=== PATIENT | male | born 1955 | race Caucasian/White ===

== ENCOUNTER 2017-08-16 22:27 | Inpatient (IN) | payer OTHER ==
[~2017-08-16] VITALS: Ht 177.8 cm; Wt 80.0 kg
[~2017-08-16 22:27] MED LIST: CHLO25 PO; PANT40IN3 PO
[2017-08-16 22:28] VITALS: BP 189/110; PULSE 136; RESP 20; TEMP 97.9; O2SAT 98
[2017-08-16] MEDS ORDERED: SODIUM CHLOR 0.9% 1000 ML INJ 1,000 ML IV SCH (22:48)
--- NOTE | 2017-08-16 22:52 | PD ---
HPI Chief Complaint: Bleeding Time Seen by Provider: 22:48 Travel History International Travel<30 days: No Contact w/Intl Traveler<30days: No Traveled to known affect area: No History of Present Illness HPI 62-year-old male presents to the emergency department for complaint of rectal bleeding and lower abdominal pain after placing 2 water filled condoms and a glass bottle per rectum around noon today. Patient states he used a laxative without symptom relief. Patient states he also used a tablespoon to try to dislodge the foreign body around 1 PM and asked when he started noticing red blood per rectum. Due to ongoing retained foreign body and feeling bloated decided to come to the emergency room for evaluation. Patient states he is very embarrassed to be here. Patient rates his discomfort 6-7/10 intensity. Patient's had no nausea or vomiting. Patient denies any chronic medical conditions although has been admitted in the past for upper GI bleed. Patient admits to occasional alcohol use and did drink alcohol earlier in the morning but denies daily alcohol use states may drink once a week or less often since his partner ; he does not drink alcohol as much as he used to as he used to drink alcohol specifically with her. Patient does admit to daily tobacco use. PFSH Past Medical History Narrative Medical upper gi bleed --cirrhosis, esophageal varices w banding x [address] Covington 02/2016, alcohol use, tobacco use; nursing notes reviewed Diminished Hearing: No Medical other: Yes (UPPER GI BLEED ) ?: Not Past Surgical History Oral Surgery: Yes (ALL TEETH PULLED) Social History Alcohol Use: Yes Tobacco Use: Yes (1 PPD) Substance Use: No Allergies-Medications (Allergen,Severity, Reaction): Coded Allergies: No Known Allergies (Unverified Adverse Reaction, Unknown, 08/16/17) Reported Meds & Prescriptions Reported Meds & Active Scripts Active No Active Prescriptions or Reported Medications Review of Systems Except as stated in HPI: all other systems reviewed are Neg General / Constitutional: No: Fever, Chills HENT: No: Congestion Cardiovascular: No: Chest Pain or Discomfort Respiratory: No: Shortness of Breath Gastrointestinal: Positive: Abdominal Pain (feels bloated), Hematochezia, No: Nausea, Vomiting, Diarrhea, Hematemesis, Loss of Appetite Musculoskeletal: No: Myalgias, Arthralgias Skin: No Rash Neurologic: No: Weakness, Dizziness Psychiatric: Positive: Anxiety Hematologic/Lymphatic: No: Lymph Node Enlargement Physical Exam Narrative GENERAL: Well-developed well-nourished male in no acute respiratory distress. Appears anxious; heart rate 135 sinus tach by compliance monitor SKIN: Warm and dry. HEAD: Normocephalic. EYES: No scleral icterus. No injection or drainage. NECK: Supple, trachea midline. No JVD or lymphadenopathy. CARDIOVASCULAR: Increased Regular rate and rhythm without murmurs, gallops, or rubs. RESPIRATORY: Breath sounds equal bilaterally. No accessory muscle use. GASTROINTESTINAL: Abdomen soft, non-tender, no guarding, no rebound, nondistended. Rectal exam: Scant dried blood at the anal verge normal sphincter tone blood and mucus on exam glove and palpable foreign body at tip of exam finger. MUSCULOSKELETAL: No cyanosis, or edema. BACK: Nontender without obvious deformity. No CVA tenderness. Data Data Last Documented VS Vital Signs Date Time Temp Pulse Resp B/P (MAP) Pulse Ox O2 Delivery O2 Flow Rate FiO2 08/16/17 22:42 136 17 98 Room Air 08/16/17 22:28 97.9 189/110 (136) Orders Orders Basic Metabolic Panel (Bmp) (08/16/17 22:48) Complete Blood Count With Diff (08/16/17 22:48) Prothrombin Time / Inr (Pt) (08/16/17 22:48) Act Partial Throm Time (Ptt) (08/16/17 22:48) Alcohol (Ethanol) (08/16/17 22:48) Abdomen, Kub Only (08/16/17 22:48) Ecg Monitoring (08/16/17 22:48) Iv Access Insert/Monitor (08/16/17 22:48) Oximetry (08/16/17 22:48) Sodium Chlor 0.9% 1000 Ml Inj (Ns 1000 M (08/16/17 22:48) Sodium Chloride 0.9% Flush (Ns Flush) (08/16/17 23:00) Type And Screen (08/16/17 22:48) Blood Product Administration (08/16/17 22:48) Sodium Chlor 0.9% 250 Ml Inj (Ns 250 Ml (08/16/17 23:00) Morphine Inj (Morphine Inj) (08/16/17 23:30) Ondansetron Inj (Zofran Inj) (08/16/17 23:30) Morphine Inj (Morphine Inj) (08/16/17 23:45) Abdomen, Upright Only (08/16/17 ) NPO (08/17/17 00:12) Magnesium (Mg) (08/17/17 00:12) Electrocardiogram (08/17/17 ) Comprehensive Metabolic Panel (08/17/17 00:32) Lorazepam Inj (Ativan Inj) (08/17/17 01:00) Sodium Chlorid 0.9% 500 Ml Inj (Ns 500 M (08/17/17 01:00) Admit To Inpatient (08/17/17 ) Code Status (08/17/17 02:20) Vital Signs (Adult) Q4H (08/17/17 02:20) Activity Oob With Assistance (08/17/17 02:20) Diet Npo (08/17/17 Breakfast) Sodium Chloride 0.9% Flush (Ns Flush) (08/17/17 02:30) Sodium Chloride 0.9% Flush (Ns Flush) (08/17/17 09:00) Acetaminophen (Tylenol) (08/17/17 02:30) Ondansetron Inj (Zofran Inj) (08/17/17 02:30) Basic Metabolic Panel (Bmp) (08/18/17 06:00) Complete Blood Count With Diff (08/18/17 06:00) Chest, Single Ap (08/17/17 02:20) Electrocardiogram (08/17/17 02:20) Scd Bilateral/Knee High LEE.BID (08/17/17 02:20) Naloxone Inj (Narcan Inj) (08/17/17 02:30) Magnesium Hydroxide Liq (Milk Of Magnesi (08/17/17 02:30) Inpatient Certification (08/17/17 ) Lorazepam Inj (Ativan Inj) (08/17/17 02:30) Acetamin-Hydrocod 325-5 Mg (Carter 5-325 (08/17/17 02:30) Hydromorphone Pf Inj (Dilaudid Pf Inj) (08/17/17 02:30) Sodium Chlorid 0.9% 500 Ml Inj (Ns 500 M (08/17/17 02:30) 1/2 Ns + Kcl 20 Meq Inj (08/13 Ns + Kcl 20 (08/17/17 02:30) Electric Motor Tester Assembler / Telemetry LEE.Q8H (08/17/17 02:27) Enalaprilat Inj (Vasotec Inj) (08/17/17 02:30) Consult Colorectal Surgery (08/17/17 ) Admit Order (Ed Use Only) (08/17/17 ) Electric Motor Tester Assembler / Telemetry LEE.Q8H (08/17/17 02:32) Activity Bed Rest (08/17/17 02:32) Notify Dr: Other (08/17/17 02:32) Labs Laboratory Tests Test 08/16/17 23:00 08/17/17 01:20 White Blood Count 14.6 TH/MM3 Red Blood Count 5.25 MIL/MM3 Hemoglobin 17.1 GM/DL Hematocrit 48.1 % Mean Corpuscular Volume 91.5 FL Mean Corpuscular Hemoglobin 32.6 PG Mean Corpuscular Hemoglobin Concent 35.6 % Red Cell Distribution Width 14.0 % Platelet Count 236 TH/MM3 Mean Platelet Volume 7.3 FL Neutrophils (%) (Auto) 78.0 % Lymphocytes (%) (Auto) 12.3 % Monocytes (%) (Auto) 8.9 % Eosinophils (%) (Auto) 0.2 % Basophils (%) (Auto) 0.6 % Neutrophils # (Auto) 11.4 TH/MM3 Lymphocytes # (Auto) 1.8 TH/MM3 Monocytes # (Auto) 1.3 TH/MM3 Eosinophils # (Auto) 0.0 TH/MM3 Basophils # (Auto) 0.1 TH/MM3 CBC Comment AUTO DIFF Differential Comment AUTO DIFF CONFIRMED Platelet Estimate NORMAL Platelet Morphology Comment NORMAL Red Cell Morphology Comment NORMAL Prothrombin Time 10.8 SEC Prothromb Time International Ratio 1.1 RATIO Activated Partial Thromboplast Time 21.3 SEC Blood Urea Nitrogen 10 MG/DL 10 MG/DL Creatinine 1.15 MG/DL 1.18 MG/DL Random Glucose 176 MG/DL 138 MG/DL Calcium Level 9.5 MG/DL 8.8 MG/DL Sodium Level 137 MEQ/L 141 MEQ/L Potassium Level 3.2 MEQ/L 3.3 MEQ/L Chloride Level 99 MEQ/L 104 MEQ/L Carbon Dioxide Level 24.1 MEQ/L 24.5 MEQ/L Anion Gap 14 MEQ/L 13 MEQ/L Estimat Glomerular Filtration Rate 64 ML/MIN 62 ML/MIN Magnesium Level 2.1 MG/DL Ethyl Alcohol Level 6 MG/DL Total Protein 7.7 GM/DL Albumin 4.0 GM/DL Alkaline Phosphatase 71 U/L Aspartate Amino Transf (AST/SGOT) 25 U/L Alanine Aminotransferase (ALT/SGPT) 32 U/L Total Bilirubin 1.3 MG/DL MDM Medical Decision Making Medical Screen Exam Complete: Yes Emergency Medical Condition: Yes Medical Record Reviewed: Yes Interpretation(s) abdomen upright xr: FINDINGS: 2 upright AP views of the abdomen. Rectal foreign body is again seen in the midline pelvis. Small amount of gas is seen in the nondependent portion of the gastric fundus. No free air is identified. Numerous small bowel air fluid levels are identified. Small bowel loops are mildly distended measuring approximately 3 cm in diameter. CONCLUSION: 1. No evidence of free air. 2. Numerous nonspecific small bowel air-fluid levels and mild diffuse small bowel distention. William Aranda MD on August 17, 2017 at 0:28 Board Certified Radiologist. This report was verified electronically. Last Impressions Abdomen X-Ray 08/16/172247 Signed Impressions: Service Date/Time: Wednesday, August 16, 2017 22:53 - CONCLUSION: 12 cm rectal foreign body identified. William Aranda MD CBC & BMP Diagram 08/16/17 23:00 Calcium Level 9.5 Vital Signs Date Time Temp Pulse Resp B/P (MAP) Pulse Ox O2 Delivery O2 Flow Rate FiO2 08/16/17 22:42 136 17 98 Room Air 08/16/17 22:28 97.9 136 20 189/110 (136) 98 Room Air EKG: Sinus tachycardia rate 122 QS inferiorly age-indeterminate no acute ST elevation or injury pattern Differential Diagnosis Retained foreign body, intestinal perforation, sepsis Narrative Course IV access obtained specimens collected and sent for resulting patient administered fluid bolus type and screen obtained and morphine sulfate 3 mg IV along with Zofran 4 mg administered With digital exam of rectum can feel top of the foreign body as reportedly bottle inserted bottom first into the rectum. Blood is on the exam glove consistent with possible mucous membrane trauma after patient inserted spoon into the rectum to try to remove the foreign body/bottle on his own no obvious tear is palpable. No active bleeding at this time blood is on the glove and no blood per rectum. Unable to pass Barragan catheter passed foreign body object to inflate the balloon and try to dislodge foreign body. Call placed to training personnel supervisor colorectal surgeon. At midnight discussed with on-call colorectal surgeon Dr. Baker who recommends patient remain nothing by mouth and will remove the foreign body in the or in the a.m. Patient informed of plan for observation admission overnight with plan for colorectal surgeon to remove retained foreign body from the rectum in the a.m.; patient states that this makes him very anxious that he is very concerned about his dog is very afraid that he will have to stay in the hospital longer than overnight he is very upset about his dog being home alone and states that this is making him more more anxious and patient's heart rate does increase with his complaint of anxiety. Patient requests antianxiety medication. @ 4:05 AM patient passed loose non-grossly bloody BM. Physician Communication Physician Communication @ 23:10 call placed to colorectal training personnel supervisor Dr Shaikh -- discussed with Dr Baker --keep npo will remove in the OR in AM; discussed with Dr Tavarez re: obs to medicine for prior h/o alc w/d and variceal upper gi bleed Diagnosis Primary Impression: Foreign body in anus and rectum, initial encounter Admitting Information Admitting Physician Requests: Observation Scripts No Active Prescriptions or Reported Meds Tammy Giordano MD Aug 16, 2017 22:52
[2017-08-16] MEDS ORDERED: SODIUM CHLORIDE 0.9% FLUSH 10 ML FLUSH IVF PRN (23:00)
[2017-08-16] MEDS ORDERED: SODIUM CHLOR 0.9% 250 ML INJ 250 ML IV ONE (23:00)
[2017-08-16 23:12] LABS: AUTOMATED NEUTROPHIL # 11.4 TH/MM3 (1.8-7.7); BASOPHIL # 0.1 TH/MM3 (0-0.2); BASOPHIL % 0.6 % (0.0-2.0); EOSINOPHIL % 0.2 % (0.0-4.0); HEMATOCRIT 48.1 % (39.0-51.0); HEMOGLOBIN 17.1 GM/DL (13.0-17.0); LYMPH % 12.3 % (9.0-44.0); LYMPHOCYTE # 1.8 TH/MM3 (1.0-4.8); MEAN CELL VOLUME 91.5 FL (80.0-100.0); MEAN CORPUSCULAR HEMOGLOBIN 32.6 PG (27.0-34.0); MEAN CORPUSCULAR HGB CONC 35.6 % (32.0-36.0); MEAN PLATELET VOLUME 7.3 FL (7.0-11.0); MONO % 8.9 % (0.0-8.0); MONOCYTE # 1.3 TH/MM3 (0-0.9); PLATELET COUNT 236 TH/MM3 (150-450); RED BLOOD COUNT 5.25 MIL/MM3 (4.50-5.90); WHITE BLOOD COUNT 14.6 TH/MM3 (4.0-11.0)
--- NOTE | 2017-08-16 23:14 | RADRPT ---
EXAM DATE/TIME: 08/16/2017 22:53 [facility] COMPARISON: No previous studies available for comparison. INDICATIONS : Blood loss and blood in stool. Evaluate for foreign body. MEDICAL HISTORY : None. SURGICAL HISTORY : None. ENCOUNTER: Initial ACUITY: 1 day PAIN SCORE: 10/10 LOCATION: Abdomen FINDINGS: 2 AP supine views of the abdomen and pelvis. There is a 12 cm x 4 cm radiopaque foreign body in the m idline pelvis indicating a rectal foreign body. It has an ovoid component superiorly and a cylindrica l component inferiorly along with a 1.1 x 0.4 cm metallic coil at the junction of the components. Bowel gas pattern is within normal limits. Small osteophytes of the hips. Moderate degenerative findi ngs the lumbar spine. CONCLUSION: 12 cm rectal foreign body identified. William Aranda MD on August 16, 2017 at 23:06 Board Certified Radiologist. This report was verified electronically.
[2017-08-16] MEDS ORDERED: MORPHINE SULFATE 4 MG/ML INJ IV PUSH ONE (23:30)
[2017-08-16] MEDS ORDERED: ONDANSETRON HCL 4 MG/2 ML VIAL IV PUSH ONE (23:30)
[2017-08-16 23:31] LABS: BICARBONATE 24.1 MEQ/L (21.0-32.0); CALCIUM 9.5 MG/DL (8.5-10.1); CREATININE 1.15 MG/DL (0.60-1.30); INTERNATIONAL NORMALIZED RATIO 1.1 RATIO; PROTHROMBIN TIME - PATIENT 10.8 SEC (9.8-11.6)
[2017-08-16] MEDS ORDERED: MORPHINE SULFATE 2 MG/ML INJ IV PUSH ONE (23:45)
--- NOTE | 2017-08-17 00:34 | RADRPT ---
EXAM DATE/TIME: 08/17/2017 00:19 [facility] COMPARISON: ABDOMEN KUB ONLY, August 16, 2017, 22:53. INDICATIONS : Evaluate for free air- Abdominal pain, foreign body MEDICAL HISTORY : None. SURGICAL HISTORY : None. ENCOUNTER: Subsequent ACUITY: 1 day PAIN SCORE: 8/10 LOCATION: Bilateral Abdomen FINDINGS: 2 upright AP views of the abdomen. Rectal foreign body is again seen in the midline pelvis. Small noemi unt of gas is seen in the nondependent portion of the gastric fundus. No free air is identified. Nume tahir small bowel air fluid levels are identified. Small bowel loops are mildly distended measuring ap proximately 3 cm in diameter. CONCLUSION: 1. No evidence of free air. 2. Numerous nonspecific small bowel air-fluid levels and mild diffuse small bowel distention. William Aranda MD on August 17, 2017 at 0:28 Board Certified Radiologist. This report was verified electronically.
[2017-08-17] MEDS ORDERED: SODIUM CHLORID 0.9% 500 ML INJ 500 ML IV ONE ×2 (01:00→02:30)
[2017-08-17] MEDS ORDERED: LORazepam 2 MG/ML VIAL IV PUSH ONE (01:00)
[2017-08-17 02:01] LABS: ALT (GPT) 32 U/L (12-78); AST (GOT) 25 U/L (15-37); BICARBONATE 24.5 MEQ/L (21.0-32.0); BLOOD UREA NITROGEN 10 MG/DL (7-18); CALCIUM 8.8 MG/DL (8.5-10.1); CHLORIDE 104 MEQ/L (98-107); CREATININE 1.18 MG/DL (0.60-1.30); GLOMERULAR FILTRATION RATE 62 ML/MIN (>89); GLUCOSE,RANDOM 138 MG/DL (74-106); SODIUM (NA) 141 MEQ/L (136-145)
[2017-08-17 02:04] LABS: ALKALINE PHOSPHATASE 71 U/L (45-117); TOTAL BILIRUBIN ADULT 1.3 MG/DL (0.2-1.0); TOTAL PROTEIN 7.7 GM/DL (6.4-8.2)
[2017-08-17] MEDS ORDERED: LORazepam 2 MG/ML VIAL IV PUSH PRN ×5 (02:30→02:45)
[2017-08-17] MEDS ORDERED: HYDROmorphone HCL PF 2 MG/ML VIAL IV PUSH PRN (02:30)
[2017-08-17] MEDS ORDERED: ACETAMINOPHEN/HYDROcodone 325 MG/5 MG TAB PO PRN ×3 (02:30→08:45)
[2017-08-17] MEDS ORDERED: ENALAPRILAT 1.25 MG/ML VIAL IV PRN (02:30)
[2017-08-17] MEDS ORDERED: MAGNESIUM HYDROXIDE SUSP 30 ML CUP PO PRN (02:30)
[2017-08-17] MEDS ORDERED: ONDANSETRON HCL 4 MG/2 ML VIAL IVP PRN (02:30)
[2017-08-17] MEDS ORDERED: SODIUM CHLORIDE 0.9% FLUSH 10 ML FLUSH IV FLUSH PRN (02:30)
[2017-08-17] MEDS ORDERED: ACETAMINOPHEN 325 MG TAB PO PRN (02:30)
[2017-08-17] MEDS ORDERED: NALOXONE HCL 0.4 MG/ML AMP IV PUSH PRN (02:30)
[2017-08-17] MEDS ORDERED: 1/2 NS + KCL 20 MEQ INJ 1,000 ML IV SCH (02:30)
[2017-08-17] MEDS ORDERED: HALOPERIDOL LACTATE 5 MG/ML AMP IM PRN (02:45)
[2017-08-17] MEDS ORDERED: FLUMAZENIL 0.5 MG/5 ML VIAL IV PUSH PRN (02:45)
[2017-08-17] MEDS ORDERED: LORazepam 1 MG TAB PO PRN (02:45)
[2017-08-17] MEDS ORDERED: LORazepam 2 MG TAB PO PRN (02:45)
--- NOTE | 2017-08-17 03:02 | RADRPT ---
EXAM DATE/TIME: 08/17/2017 02:28 [facility] COMPARISON: CHEST SINGLE AP, February 17, 2016, 17:25. INDICATIONS : Pre-op, Evaluate for pneumonia MEDICAL HISTORY : None. SURGICAL HISTORY : None. ENCOUNTER: Initial ACUITY: 2 days PAIN SCORE: 7/10 LOCATION: Bilateral chest FINDINGS: Single AP view of the chest. The lungs are clear. Cardiomediastinal silhouette within normal limits. No evidence of pleural effusion or pneumothorax. CONCLUSION: No acute cardiopulmonary disease identified. William Aranda MD on August 17, 2017 at 3:00 Board Certified Radiologist. This report was verified electronically.
[2017-08-17 03:08] VITALS: BP 120/75; PULSE 105; RESP 16; O2SAT 96
[2017-08-17 04:53] VITALS: BP 114/93
[2017-08-17] MEDS ORDERED: LACTATED RINGER'S 1000 ML IV PRN (05:15)
[2017-08-17] MEDS ORDERED: POVIDONE IODINE 5% (ANTISEPSIS KIT) 4 APPLICATIONS EACH NARE PRN (05:15)
[2017-08-17] MEDS ORDERED: SODIUM CHLORID 0.9% 500 ML IV PRN (05:15)
[2017-08-17] MEDS ORDERED: METOPROLOL TARTRATE 25 MG TAB PO PRN (05:15)
[2017-08-17] MEDS ORDERED: CHLORHEXIDINE GLUCONATE 2 % 1 PACK (2 CLOTHS) TOPICAL PRN (05:15)
[2017-08-17 05:30] VITALS: BP 130/82; PULSE 101; RESP 16; TEMP 96.6; O2SAT 96
[2017-08-17 08:30] VITALS: BP 104/58; PULSE 92; RESP 14; TEMP 97.8
[2017-08-17] MEDS ORDERED: DO NOT ADM ANY ANTICOAGULANT DRUGS PRN (09:00)
[2017-08-17] MEDS ORDERED: SODIUM CHLORIDE 0.9% FLUSH 10 ML FLUSH IV FLUSH SCH (09:00)
--- NOTE | 2017-08-17 09:25 | HHI.HP ---
HPI Service [facility] Hospitalists Primary Care Physician No Primary Care Physician Admission Diagnosis retained rectal FB Chief Complaint: Object retained in rectum with rectal bleeding Travel History International Travel<30 Days: No Contact w/Intl Traveler <30 Da: No Traveled to Known Affected Are: No History of Present Illness Per review of medical records: Patient was to be admitted for colorectal surgery however patient had been discharged prior to medical team seeing the patient. This is a 62-year-old male patient who denies prior medical history and review of prior records patient has had a history of upper GI bleed EtOH abuse, cirrhosis esophageal varices with banding 14 February 2016. Patient presented to the emergency room last night after placing 2 water filled condoms and a glass bottle per rectum around noon 08/16/2017. Patient states he used a laxative and was unable to dislodge the objects in his rectum. Patient then tried to use a tablespoon to try to dislodge the foreign body around 1 PM and asked when he started noticing bright red blood per rectum. Due to ongoing retained foreign body and feeling bloated decided to come to the emergency room for evaluation. Initially patient rated his discomfort 6-7/10 intensity. Patient's had no nausea/vomiting, fevers chills shortness of breath or chest pain. Patient seen after surgical removal of foreign body from rectum and repair of laceration 08/17/[address] Baker. Past Family Social History Past Medical History upper GI bleed EtOH abuse, cirrhosis esophageal varices with banding 14 February 2016. Past Surgical History esophageal varices w banding x [address] Covington 02/2016 Reported Medications No Active Prescriptions or Reported Medications Allergies: Coded Allergies: No Known Allergies (Unverified Adverse Reaction, Unknown, 08/16/17) Active Ordered Medications Current Medications Medications (Trade) Dose Ordered Sig/Radha Route Start Time Stop Time Status Last Admin (NS Flush) 2 ml UNSCH PRN IVF 08/16/17 23:00 Sodium Chloride 250 ml @ 15 mls/hr ONCE ONCE IV 08/16/17 23:00 08/17/17 15:39 (NS Flush) 2 ml UNSCH PRN IV FLUSH 08/17/17 02:30 (NS Flush) 2 ml BID IV FLUSH 08/17/17 09:00 (Tylenol) 650 mg Q4H PRN PO 08/17/17 02:30 (Zofran Inj) 4 mg Q6H PRN IVP 08/17/17 02:30 (Narcan Inj) 0.4 mg UNSCH PRN IV PUSH 08/17/17 02:30 (Milk Of Magnesia Liq) 30 ml Q12H PRN PO 08/17/17 02:30 (Ativan Inj) 1 mg Q4H PRN IV PUSH 08/17/17 02:30 (Dilaudid Pf Inj) 0.5 mg Q4H PRN IV PUSH 08/17/17 02:30 Potassium Chloride/Sodium Chloride 1,000 ml @ 84 mls/hr [id number] IV 08/17/17 02:30 08/17/17 05:45 (Vasotec Inj) 1.25 mg Q6H PRN IV 08/17/17 02:30 (Romazicon Inj) 0.2 mg Q1M PRN IV PUSH 08/17/17 02:45 (Ativan) 1 mg Q4H PRN PO 08/17/17 02:45 (Ativan Inj) 1 mg Q4H PRN IV PUSH 08/17/17 02:45 (Ativan) 2 mg Q2H PRN PO 08/17/17 02:45 (Ativan Inj) 2 mg Q2H PRN IV PUSH 08/17/17 02:45 (Ativan Inj) 2 mg Q1H PRN IV PUSH 08/17/17 02:45 (Ativan Inj) 2 mg Q15M PRN IV PUSH 08/17/17 02:45 (Haldol Inj) 2 mg Q15M PRN IM 08/17/17 02:45 Lactated Ringer's 1,000 ml @ 30 mls/hr Q24H PRN IV 08/17/17 05:15 08/20/17 05:14 08/17/17 06:22 Sodium Chloride 500 ml @ 30 mls/hr [id number] PRN IV 08/17/17 05:15 08/20/17 05:14 (Lopressor) 25 mg [employer] PRN PO 08/17/17 05:15 08/20/17 05:14 (Betadine 5% Antisepsis Kit) 1 applic [employer] PRN EACH NARE 08/17/17 05:15 08/20/17 05:14 (Chlorhexidine 2% Cloth) 3 pack [employer] PRN TOPICAL 08/17/17 05:15 08/20/17 05:14 ([place]ho[place]any 5-325 Mg) 1 tab Q4H PRN PO 08/17/17 08:45 ([place]ho[place]any 5-325 Mg) 2 tab Q4H PRN PO 08/17/17 08:45 Miscellaneous Information ALL NURSING DEPARTME... 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 History of ETOH abuse reports only drinks Tobacco abuse 1 PPD for 45+ years Denies illicit drug use Physical Exam Vital Signs Vital Signs Date Time Temp Pulse Resp B/P (MAP) Pulse Ox O2 Delivery O2 Flow Rate FiO2 08/17/17 08:30 97.8 92 14 104/58 (73) 97 Room Air 08/17/17 08:15 98 14 119/73 (88) 96 Room Air 08/17/17 08:07 97.8 96 14 134/87 (103) 98 Nasal Cannula 2 08/17/17 06:21 98.8 110 24 131/86 (101) 95 08/17/17 05:30 96.6 101 16 130/82 (98) 96 08/17/17 04:54 08/17/17 04:53 114/93 (100) Room Air 08/17/17 03:08 105 16 120/75 (90) 96 Room Air 08/16/17 22:42 136 17 98 Room Air 08/16/17 22:28 97.9 136 20 189/110 (136) 98 Room Air Physical Exam Patient was to be admitted for colorectal surgery however patient had been discharged prior to medical team seeing the patient Laboratory Laboratory Tests Test 08/16/17 23:00 08/17/17 01:20 White Blood Count 14.6 Red Blood Count 5.25 Hemoglobin 17.1 Hematocrit 48.1 Mean Corpuscular Volume 91.5 Mean Corpuscular Hemoglobin 32.6 Mean Corpuscular Hemoglobin Concent 35.6 Red Cell Distribution Width 14.0 Platelet Count 236 Mean Platelet Volume 7.3 Neutrophils (%) (Auto) 78.0 Lymphocytes (%) (Auto) 12.3 Monocytes (%) (Auto) 8.9 Eosinophils (%) (Auto) 0.2 Basophils (%) (Auto) 0.6 Neutrophils # (Auto) 11.4 Lymphocytes # (Auto) 1.8 Monocytes # (Auto) 1.3 Eosinophils # (Auto) 0.0 Basophils # (Auto) 0.1 CBC Comment AUTO DIFF Differential Comment AUTO DIFF CONFIRMED Platelet Estimate NORMAL Platelet Morphology Comment NORMAL Red Cell Morphology Comment NORMAL Prothrombin Time 10.8 Prothromb Time International Ratio 1.1 Activated Partial Thromboplast Time 21.3 Blood Urea Nitrogen 10 10 Creatinine 1.15 1.18 Random Glucose 176 138 Calcium Level 9.5 8.8 Sodium Level 137 141 Potassium Level 3.2 3.3 Chloride Level 99 104 Carbon Dioxide Level 24.1 24.5 Anion Gap 14 13 Estimat Glomerular Filtration Rate 64 62 Magnesium Level 2.1 Ethyl Alcohol Level 6 Total Protein 7.7 Albumin 4.0 Alkaline Phosphatase 71 Aspartate Amino Transf (AST/SGOT) 25 Alanine Aminotransferase (ALT/SGPT) 32 Total Bilirubin 1.3 Result Diagram: 08/16/17 2300 08/17/17 0120 Imaging Last Impressions Chest X-Ray 08/17/17 0220 Signed Impressions: Service Date/Time: Thursday, August 17, 2017 02:28 - CONCLUSION: No acute cardiopulmonary disease identified. William Aranda MD Abdomen X-Ray 08/16/178 Signed Impressions: Service Date/Time: Wednesday, August 16, 2017 22:53 - CONCLUSION: 12 cm rectal foreign body identified. MD Clarissa Akhtari VTE Risk Assessment Emy VTE Risk Assessment: No/Low Risk (score <= 1) Caprini Risk Assessment Model Point Value = 1 Point Value = 2 Point Value = 3 Point Value = 5 Age 41-60 Minor surgery BMI > 25 kg/m2 Swollen legs Varicose veins or History of unexplained or recurrent spontaneous Oral contraceptives or hormone replacement Sepsis (< 1 month) Serious lung disease, including pneumonia (< 1 month) Abnormal pulmonary function Acute myocardial infarction Congestive heart failure (< 1 month) History of inflammatory bowel disease Medical patient at bed rest Age 61-74 Arthroscopic surgery Major open surgery (> 45 min) Laparoscopic surgery (> 45 min) Malignancy Confined to bed (> 72 hours) Immobilizing plaster cast Central venous access Age >= 75 History of VTE Family history of VTE Factor V Leiden Prothrombin [id number] Lupus anticoagulant Anticardiolipin antibodies Elevated serum homocysteine Heparin-induced thrombocytopenia Other congenital or acquired thrombophilia Stroke (< 1 month) Elective arthroplasty Hip, pelvis, or leg fracture Acute spinal cord injury (< 1 month) Prophylaxis Regimen Total Risk Factor Score Risk Level Prophylaxis Regimen 0-1 Low Early ambulation 2 Moderate Order ONE of the following: *Sequential Compression Device (SCD) *Heparin 5000 units SQ BID 3-4 Higher Order ONE of the following medications: *Heparin 5000 units SQ TID *Enoxaparin/Lovenox 40 mg SQ daily (WT < 150 kg, CrCl > 30 mL/min) *Enoxaparin/Lovenox 30 mg SQ daily (WT < 150 kg, CrCl > 10-29 mL/min) *Enoxaparin/Lovenox 30 mg SQ BID (WT < 150 kg, CrCl > 30 mL/min) AND/OR *Sequential Compression Device (SCD) 5 or more Highest Order ONE of the following medications: *Heparin 5000 units SQ TID (Preferred with Epidurals) *Enoxaparin/Lovenox 40 mg SQ daily (WT < 150 kg, CrCl > 30 mL/min) *Enoxaparin/Lovenox 30 mg SQ daily (WT < 150 kg, CrCl > 10-29 mL/min) *Enoxaparin/Lovenox 30 mg SQ BID (WT < 150 kg, CrCl > 30 mL/min) AND *Sequential Compression Device (SCD) Assessment and Plan Problem List: (1) Foreign body in anus and rectum, initial encounter ICD Codes: T18.5XXA - Foreign body in anus and rectum, initial encounter Status: Acute Plan: surgical removal of foreign body from rectum and repair of laceration 08/17/[address] Baker Patient recheck CBC in a.m. Plan to discharge tomorrow (2) Rectal laceration ICD Codes: S36.63XA - Laceration of rectum, initial encounter (3) History of ETOH abuse ICD Codes: Z87.898 - Personal history of other specified conditions Plan: Patient denies current EtOH abuse or daily EtOH use. Patient reports he only drinks approximally one day per week Ativan if needed for agitation monitor closely for S/S of withdraw (4) Hypokalemia ICD Codes: E87.6 - Hypokalemia Status: Acute Plan: Potassium 3.3 will replace Assessment and Plan Patient was to be admitted for colorectal surgery however patient had been discharged prior to medical team seeing the patient Patient examined. Assessment and plan formulated with Kymberly Claudio PA-C. I agree with the above. Kymberly Claudio Aug 17, 2017 09:25 Nino Tavarez DO Aug 22, 2017 00:29
[2017-08-17 10:38] VITALS: O2SAT 97
[2017-08-17] MEDS ORDERED: LIDOCAINE HCL 1% PF 5 ML SYRINGE OTHER ONE (12:00)
[2017-08-17] MEDS ORDERED: ROCURONIUM INJ 50 MG/5 ML SYRINGE IV PUSH ONE (12:00)
[2017-08-17] MEDS ORDERED: NEOSTIGMINE 5 MG/5 ML SYRINGE IV PUSH ONE (12:00)
[2017-08-17] MEDS ORDERED: SUCCINYLCHOLINE CHLORIDE 100 MG/5 ML SYRINGE IV PUSH ONE (12:00)
[2017-08-17] MEDS ORDERED: GLYCOPYRROLATE 1 MG/5 ML SYRINGE IV PUSH ONE (12:00)
[2017-08-17] MEDS ORDERED: PROPOFOL 200 MG/20 ML AMP IV ONE (12:00)
[2017-08-17] MEDS ORDERED: ESMOLOL HCL 100 MG/10 ML VIAL IV ONE (12:00)
[2017-08-17] MEDS ORDERED: CEPH-459 PO (12:31)
--- NOTE | 2017-08-17 13:34 | EKG ---
Date Performed: 08/17/2017 Time Performed: 00:28:33 PTAGE: 62 years EKG: SINUS TACHYCARDIA Left axis deviation NO PREVIOUS TRACING DOCTOR: Bran Pavon Interpretating Date/Time 08/17/2017 13:33:53
--- NOTE | 2017-08-17 13:35 | EKG ---
Date Performed: 08/17/2017 Time Performed: 05:32:28 PTAGE: 62 years EKG: Sinus rhythm Left axis deviation Septal T wave changes are nonspecific Low QRS voltages in limb leads Borderline ECG PREVIOUS TRACING 08/17/17 Since previous tracing, heart rate is slower. Otherwise, no signific ant change. DOCTOR: Bran Pavon Interpretating Date/Time 08/17/2017 13:34:53
--- NOTE | 2017-08-17 20:05 | MB ---
cc: TANK BLANCO MD DATE OF CONSULTATION: 08/17/2017 REASON FOR CONSULTATION: Foreign body of the rectum. HISTORY OF PRESENT ILLNESS: This is a 62-year-old who presented to the emergency room with a 12-hour history of a retained foreign body of the rectum. The patient described inserting a glass perfume bottle with a metal cap that slides off. The cap end is towards the anus. The patient also inserted a fluid-filled condom. The patient does not have abdominal pain. He feels rectal pressure. He has had some spotting of blood. The patient does have a history of alcohol abuse and he has had esophageal varices banded in the past. He denies hepatitis or HIV disease. He has had normal bowel function prior to this event. Past history is as noted above. On exam, he is alert without distress. His respirations are normal. Skin is warm and dry. Vital signs are normal. His abdomen is soft and nontender without mass. Rectal exam was not performed at this time but the glass bottle has been described as palpable by other examiners. Laboratories show a hemoglobin of 17, white blood cell count of 14,000. His coagulation studies and liver functions are normal. His platelet count is normal. Flat and upright abdominal x-rays show no sign of free air. The glass bottle is visualized. ASSESSMENT: Retained rectal foreign body. PLAN: The patient was brought to the operating room for examination under anesthesia with transanal removal of the foreign body. Colonoscopy will be performed to evaluate for bowel injury and to assist with removal if needed. This was discussed including laparotomy and possible colostomy. MD BERKLEY Patel/LALI /7:47 AM /7:36 PM MTDLi
--- NOTE | 2017-08-17 20:18 | MP ---
cc: TANK BAKER MD DATE OF SURGERY: 08/17/2017. PREOPERATIVE DIAGNOSIS: Rectal foreign body. POSTOPERATIVE DIAGNOSIS: 1. A 15 x 5 cm glass perfume bottle. 2. A fluid-filled condom x1. 3. Low rectal pressure ulceration with active arterial bleeding. OPERATIVE PROCEDURE PERFORMED: 1. Removal of rectal foreign body by digital manipulation. 2. Flexible sigmoidoscopy with removal of fluid-filled condom. 3. Anoscopy with suture of bleeding site in rectal ulcer. SURGEON: Tank Baker MD. ANESTHESIA: General. INDICATIONS FOR THE PROCEDURE: This is a 62-year-old who presents with a foreign body which consists of a glass perfume bottle. The patient has also inserted a fluid-filled condom. DESCRIPTION OF THE PROCEDURE IN DETAIL: The perineum was prepped and draped in the exaggerated lithotomy position on the operating table and prepped and draped in the usual sterile fashion after general anesthesia with full paralysis. On digital exam, the cap end of the bottle was readily palpable. It was possible to manipulate it. The head of the bottle was impacted in the low rectum. This was freed with a finger and guided out of the anus with the aid of an abdominal pressure. The colonoscope was then inserted. There was bleeding noted. The fluid-filled condom was identified just above the rectosigmoid junction. It was grasped with a biopsy forceps through the colonoscope and with gentle traction it was extracted. The colonoscope was inserted further to 60 cm. There were no additional condoms identified. In the low rectum, there was an area of mucosal interruption with edematous mucosal tags, this was in the left lateral position approximately 2 cm above the anorectal ring. The area was better visualized with the bivalve anoscope and with Allis clamps placing traction on the low rectal mucosa, which was quite mobile. The patient's anus was also patulous. The laceration was brought into view. It was a pressure ulceration that was felt to be due to impaction of the cap of the bottle against the rectal tissue. There was an active bleeding artery at the edge of the ulcer. The ulcer extended into the bowel wall but not through it and it had an inflammatory base with exudate. The bleeding artery was visualized and it was sutured [id number] Vicryl suture. Bleeding was controlled with this stitch. The bowel was again examined after further irrigation of the rectum. There were no other rectal injuries identified. There was some concern that the patient had inserted a second condom but this could not be located on insertion of the instrument. The fluid-filled condom was removed and it was quite soft and it was felt that if there was another retained condom, it would pass spontaneously. The patient tolerated the procedure well. The sponge count was correct. The blood loss was minimal. MD BERKLEY Patel/LALI /7:47 AM 7:51 PM .2 MTDLi
== END 2017-08-17 13:48 | disposition home or self-care (01) | DRG 330 ==
LOC: NEPC 22:27 → NEDA 08-17 02:33 → N06B 08-17 05:02
PROVIDERS: ADMIT Hospitalist; ATTEND Hospitalist
PROC: 0DCP7ZZ Extirpation of Matter from Rectum, Via Natural or Artificial Opening (ICD-10-PCS; 2017-08-17)
PROC: 0DCP8ZZ Extirpation of Matter from Rectum, Via Natural or Artificial Opening Endoscopic (ICD-10-PCS; 2017-08-17)
PROC: 0DQP8ZZ Repair Rectum, Via Natural or Artificial Opening Endoscopic (ICD-10-PCS; principal; 2017-08-17 07:07)
DX: T18.5XXA Foreign body in anus and rectum, initial encounter (principal); S36.63XA Laceration of rectum, initial encounter; K74.60 Unspecified cirrhosis of liver; F17.210 Nicotine dependence, cigarettes, uncomplicated; E87.6 Hypokalemia; F41.9 Anxiety disorder, unspecified
CPT/HCPCS: 71045; 74018; 80048; 80053; 80307; 83735; 85025; 85610; 85730; 86850; 86900; 86901; 93005; 96374; 96375; J0330; J2060; J2270; J2405; J2710; J3010; J7030; J7040; J7120